=== PATIENT | female | born 1985 | race African-American/Black ===

== ENCOUNTER 2019-09-26 19:21 | Emergency (ER) | payer OTHER ==
[2019-09-26 19:42] VITALS: BP 128/81
[2019-09-26] MEDS ORDERED: IV NORMAL SALINE 1,000ML 1,000 ML IV ONE (20:00)
[2019-09-26 20:19] LABS: U PREG PATIENT NEGATIVE (NEG)
[2019-09-26 20:24] LABS: CLARITY,URINE CLEAR; COLOR,URINE STRAW
[2019-09-26 20:25] LABS: BACTERIA,URINE 0 /HPF (0-FEW); BILIRUBIN,URINE NEG (NEG); GLUCOSE,URINE NEG (NEG); NITRITE,URINE NEG (NEG); RBC,URINE RARE /HPF (0-2); SQUAMOUS EPITHELIAL CELL,UR OCC /LPF; UROBILINOGEN,URINE 0.2 mg/dL (0.2 mg/dL); WBC,URINE RARE /HPF (0-4)
[2019-09-26 20:29] LABS: BASO % 0 % (0-3); EOS # 0.1 x10^3/uL (0.0-0.7); EOS % 2 % (0-3); HEMOGLOBIN 11.9 g/dL (12.0-15.5); LYMPH # 1.6 x10^3/uL (1.0-4.8); LYMPH % 23 % (24-48); MEAN CORPUSCULAR HEMOGLOBIN 30 pg (25-35); MEAN CORPUSCULAR HGB CONC 33 g/dL (31-37); MEAN CORPUSCULAR VOLUME 91 fL (79-100); MONO # 0.6 x10^3/uL (0.0-1.1); MONO % 9 % (0-9); NEUT # 4.6 x10^3uL (1.8-7.7); NEUT % 66 % (31-73); PLATELET COUNT 275 x10^3/uL (140-400); RED BLOOD COUNT 3.98 x10^6/uL (3.50-5.40); RED CELL DISTRIBUTION WIDTH 13.7 % (11.5-14.5)
--- NOTE | 2019-09-26 20:34 | PHYS DOC ---
Past History Past Medical History: No Pertinent History Past Surgical History: No Surgical History Alcohol Use: None Drug Use: None Adult General Chief Complaint Chief Complaint: VAGINAL BLEEDING HPI HPI Patient is a 34 year old female who presents with complaint of heavy menstrual bleeding. Patient states that her menstrual cycle started 5 days ago. She states that she has normally had a regular menstrual cycle and notes that her current menstrual cycle started on time. She states however over the past 2-3 days she has had significantly heavier bleeding than usual and has been having significant pelvic cramping associated with symptoms. Notes that she has also felt fatigued. Has had nausea but no vomiting. Denies any fevers. Has not taken any medications for any symptoms. The patient voices concern for possibility of as well as the amount of bleeding as she is concerned that this could be causing a potentially severe condition. Denies dizziness or lightheadedness currently. Is able to ambulate under her own power and denies shortness of breath. Review of Systems Review of Systems Constitutional: Generalized fatigue, denies fever or chills[] Eyes: Denies change in visual acuity, redness, or eye pain [] HENT: Denies nasal congestion or sore throat [] Respiratory: Denies cough or shortness of breath [] Cardiovascular: Denies chest pain or edema[] GI: Denies abdominal pain, nausea, vomiting, bloody stools or diarrhea [] : Heavy vaginal bleeding, pelvic cramping, denies dysuria or hematuria[] Musculoskeletal: Denies back pain or joint pain [] Integument: Denies rash or skin lesions [] Neurologic: Denies headache, focal weakness or sensory changes [] All other systems were reviewed and found to be within normal limits, except as documented in this note. Current Medications Current Medications Current Medications Medications (Trade) Dose Ordered Sig/Juarez Start Time Stop Time Status Last Admin Dose Admin Sodium Chloride 1,000 ml @ 1,000 mls/hr 1X ONCE 09/26/19 20:00 09/26/19 20:59 09/26/19 20:00 1,000 MLS/HR Allergies Allergies Allergies Coded Allergies Type Severity Reaction Last Updated Verified cefaclor Allergy Intermediate 09/26/19 Yes Physical Exam Physical Exam Constitutional: Well developed, well nourished, no acute distress, non-toxic appearance. [] HENT: Normocephalic, atraumatic, bilateral external ears normal, oropharynx moist, no oral exudates, nose normal. [] Eyes: PERRLA, EOMI, conjunctiva normal, no discharge. [] Neck: Normal range of motion, no tenderness, supple, no stridor. [] Cardiovascular:Heart rate regular rhythm, no murmur [] Lungs & Thorax: Bilateral breath sounds clear to auscultation [] Abdomen: Bowel sounds normal, soft, no tenderness, no masses, no pulsatile masses. [] Skin: Warm, dry, no erythema, no rash. [] Back: No tenderness, no CVA tenderness. [] Extremities: No tenderness, no cyanosis, no clubbing, ROM intact, no edema. [] Neurologic: Alert and oriented X 3, normal motor function, normal sensory function, no focal deficits noted. [] Psychologic: Affect normal, judgement normal, mood normal. [] Current Patient Data Vital Signs Vital Signs Date Time Temp Pulse Resp B/P (MAP) Pulse Ox O2 Delivery O2 Flow Rate FiO2 09/26/19 19:42 82 18 98 Room Air Lab Results Laboratory Tests Test 09/26/19 20:00 09/26/19 20:12 Urine Collection Type Void Urine Color Straw Urine Clarity Clear Urine pH 7.0 Urine Specific [place] 1.015 Urine Protein Neg Urine Glucose (UA) Neg mg/dL Urine Ketones (Stick) Neg mg/dL Urine Blood Mod Urine Nitrite Neg Urine Bilirubin Neg Urine Urobilinogen Dipstick 0.2 mg/dL Urine Leukocyte Esterase Neg Urine RBC Rare /HPF Urine WBC Rare /HPF Urine Squamous Epithelial Cells Occ /LPF Urine Bacteria 0 /HPF Urine Test Negative White Blood Count 7.0 x10^3/uL Red Blood Count 3.98 x10^6/uL Hemoglobin 11.9 g/dL Hematocrit 36.0 % Mean Corpuscular Volume 91 fL Mean Corpuscular Hemoglobin 30 pg Mean Corpuscular Hemoglobin Concent 33 g/dL Red Cell Distribution Width 13.7 % Platelet Count 275 x10^3/uL Neutrophils (%) (Auto) 66 % Lymphocytes (%) (Auto) 23 % Monocytes (%) (Auto) 9 % Eosinophils (%) (Auto) 2 % Basophils (%) (Auto) 0 % Neutrophils # (Auto) 4.6 x10^3uL Lymphocytes # (Auto) 1.6 x10^3/uL Monocytes # (Auto) 0.6 x10^3/uL Eosinophils # (Auto) 0.1 x10^3/uL Basophils # (Auto) 0.0 x10^3/uL Sodium Level 138 mmol/L Potassium Level 3.9 mmol/L Chloride Level 103 mmol/L Carbon Dioxide Level 28 mmol/L Anion Gap 7 Blood Urea Nitrogen 10 mg/dL Creatinine 0.9 mg/dL Estimated GFR (Cockcroft-Gault) 87.3 Glucose Level 86 mg/dL Calcium Level 8.5 mg/dL Current Medications Medications (Trade) Dose Ordered Sig/Juarez Route PRN Reason Start Time Stop Time Status Last Admin Dose Admin Sodium Chloride 1,000 ml @ 1,000 mls/hr 1X ONCE IV 09/26/19 20:00 09/26/19 20:59 DC 09/26/19 20:00 Ketorolac Tromethamine (Toradol 30mg Vial) 30 mg 1X ONCE IVP 09/26/19 21:15 09/26/19 21:16 EKG EKG Not performed[] Radiology/Procedures Radiology/Procedures Not performed[] Course & Med Decision Making Course & Med Decision Making Pertinent Labs and Imaging studies reviewed. (See chart for details) Patient was started on IV fluids in the emergency department. Blood work remarkable for CBC of 11.9 but no other significant findings. Patient does not appear to be severely anemic and vital signs appear normal. This would suggest against severe or life-threatening cause of bleeding. I spoke with the patient and recommended a pelvic exam to be performed to allow me to visualize the current extent of bleeding. The patient however stated that she did not feel comfortable having this exam done in the emergency department at this time. Patient's test was negative. She states that this was very important to her to obtain this information. She notes that while her menstrual bleeding is heavy she does not feel it is as severe at this time knowing the information that we have looked at. I did explain to patient that not being able to perform a pelvic exam may potentially hinder my overall exam in determining if her bleeding is serious or severe. She voices understanding of this and stated she did not wish to have this exam performed as she does not feel comfortable at this time having it done in the emergency department. Per the patient's wishes a pelvic exam was not performed. As her blood work and vital signs at this time are stable, I recommended continued oral hydration and use of ibuprofen as needed for symptoms of dysmenorrhea at home. Patient referred to Dr. Grimaldo of [facility]. Advised patient to call his office tomorrow to set up an appointment within the next 5-7 days for reevaluation. Recommended return to the emergency department for any worsening symptoms. Patient was understanding and in agreement with treatment plan. Dragon Disclaimer Dragon Disclaimer This electronic medical record was generated, in whole or in part, using a voice recognition dictation system. Departure Departure: Impression: Primary Impression: Dysmenorrhea Disposition: HOME, SELF-CARE Condition: STABLE Referrals: PCP,KADEN (PCP) Beau Grimaldo Jr, MD Patient Instructions: Dysmenorrhea Additional Instructions: Follow-up with Dr. Grimaldo in the next 5-7 days for reevaluation. Return to the emergency department for any worsening symptoms. NAOMI LEWIS MD Sep 26, 2019 20:34
[2019-09-26 20:36] LABS: CALCIUM 8.5 mg/dL (8.5-10.1); CREATININE 0.9 mg/dL (0.6-1.0); GFR 87.3; POTASSIUM 3.9 mmol/L (3.5-5.1)
[2019-09-26] MEDS ORDERED: KETOROLAC 30 MG/ML VIAL. IVP ONE (21:15)
== END 2019-09-26 21:21 | disposition home or self-care (01) ==
LOC: ER 19:21
DX: N94.6 Dysmenorrhea, unspecified (principal); Z88.1 Allergy status to other antibiotic agents
CPT/HCPCS: 36415; 80048; 81001; 81025; 85025; 96374; 99284; J1885; J7030